=== PATIENT | female | born 1960 ===

== ENCOUNTER 2021-10-05 06:15 | Day surgery (SDC) | payer OTHER ==
[~2021-10-05 06:15] MED LIST: CRESTOR10 MG
[2021-10-05] MEDS ORDERED: PERCOCET 5-3251 EACH PO (09:05)
== END 2021-10-05 13:20 | disposition home or self-care (01) ==
LOC: CIR.AMB 06:15
PROVIDERS: ATTEND Surgery
DX: D35.1 Benign neoplasm of parathyroid gland (principal); Z20.822 Contact with and (suspected) exposure to COVID-19